=== PATIENT | female | born 1975 | race Hispanic/Latino ===

== ENCOUNTER 2019-11-13 05:18 | Day surgery (SDC) | payer MEDICAID ==
[2019-11-08 16:00] LABS: BASOPHILS % (AUTO) 0.5 % (0.0-5.0); EOSINOPHILS % (AUTO) 1.6 % (0.0-8.0); HEMATOCRIT 41.4 % (36-48); LYMPHOCYTES % (AUTO) 20.7 % (21.0-51.0); MEAN CORPUSCULAR HEMOGLOBIN 31.2 pg (27.0-33.0); MEAN CORPUSCULAR HGB CONC 33.3 g/dL (32.0-36.0); MEAN CORPUSCULAR VOLUME 93.5 fL (79-99); MONOCYTES % (AUTO) 8.8 % (3.0-13.0); NEUTROPHILS % (AUTO) 68.1 % (40.0-77.0); PLATELET COUNT (AUTO) 350 K/uL (130-400); RED BLOOD CELL COUNT(AUTO) 4.43 MIL/uL (4.00-5.50); RED CELL DISTRIBUTION WIDTH 11.7 % (11.0-15.5); WHITE BLOOD COUNT (AUTO) 9.1 K/uL (4.8-10.8)
[2019-11-12 16:16] VITALS: BP 137/75
[~2019-11-13] VITALS: Ht 162.6 cm; Wt 76.1 kg
[2019-11-13] VITALS (16 sets, daily range): BP systolic 107–128; BP diastolic 63–78
[~2019-11-13 05:18] MED LIST: PREN-154 PO
[2019-11-13] MEDS ORDERED: LIDOCAINE PF 2% 5ML ABBOJECT ONE (06:14)
[2019-11-13] MEDS ORDERED: PROPOFOL 10 MG/ML 20ML VIAL IV ONE (06:14)
[2019-11-13] MEDS ORDERED: FENTANYL CITRATE PF 50 MCG/1 ML 2ML VIAL ONE (06:14)
[2019-11-13] MEDS: LACTATED RINGERS 1000ML 1,000 ML IV SCH (06:24)
--- NOTE | 2019-11-13 06:36 | NUR ---
missed Addendum: 11/13/19 at 0637 by MIGUEL ANGEL COTTO RN RN Amended: Links added.
[2019-11-13] MEDS ORDERED: GLYCOPYRROLATE 1 MG/5 ML SYRINGE ONE (06:58)
[2019-11-13] MEDS ORDERED: OXYTOCIN 10 USP UNITS/ML ONE (06:59)
--- NOTE | 2019-11-13 08:10 | NUR ---
Pt arrived to from [facility] with nurse Kemal Erickson, Denies discomfort.
--- NOTE | 2019-11-13 08:55 | NUR ---
Pt remains asymptomatic at this time , dressed and placed in a wheelchair and taken to private vehicle.
== END 2019-11-13 08:55 | disposition home or self-care (01) ==
LOC: DAH 05:18
PROVIDERS: ATTEND Obstetrics & Gynecology
DX: O03.4 Incomplete spontaneous abortion without complication (principal)
CPT/HCPCS: 36415 ×2; 59812; 85025; 86850 ×2; 86900 ×2; 86901 ×2; A4215; A4221; A4222; A4223; A4315; A4649; A4663; A4930; A7002; C9803; J2001; J2590; J2704; J3010; J3490; J7030; U0003

== ENCOUNTER 2020-01-06 02:27 | Emergency (ER) | payer MEDICAID ==
[2020-01-06 02:50] LABS: APPEARANCE,URINE Clear (CLEAR); BILIRUBIN,URINE Negative (NEGATIVE); COLOR,URINE Yellow (YELLOW); GLUCOSE, URINE (UA) Negative (NEGATIVE); KETONES,URINE Trace mg/dL (NEGATIVE); LEUKOCYTE ESTERASE ,URINE Small (NEGATIVE); NITRATE,URINE Negative (NEGATIVE); OCCULT BLOOD,URINE Small (NEGATIVE); PROTEIN,URINE Negative (NEGATIVE); UROBILINOGEN,URINE 0.2 mg/dL (0.2-1.0)
[2020-01-06] MEDS ORDERED: IOHEXOL 350 MG/ML 100ML INFUS..BTL IV ONE (02:55)
[2020-01-06 02:56] LABS: BASOPHILS % (AUTO) 0.7 % (0.0-5.0); EOSINOPHILS % (AUTO) 1.4 % (0.0-8.0); HEMATOCRIT 44.9 % (36-48); LYMPHOCYTES % (AUTO) 36.2 % (21.0-51.0); MEAN CORPUSCULAR HGB CONC 34.1 g/dL (32.0-36.0); MEAN CORPUSCULAR VOLUME 91.1 fL (79-99); MONOCYTES % (AUTO) 7.9 % (3.0-13.0); NEUTROPHILS % (AUTO) 52.9 % (40.0-77.0); PLATELET COUNT (AUTO) 368 K/uL (130-400); RED BLOOD CELL COUNT(AUTO) 4.93 MIL/uL (4.00-5.50); RED CELL DISTRIBUTION WIDTH 11.9 % (11.0-15.5)
[2020-01-06 02:56] LABS: BACTERIA,URINE None Seen /HPF (None Seen)
[2020-01-06 02:57] LABS: AMPHET/METH SCREEN,URINE NEGATIVE (NEGATIVE); BARBITURATE SCREEN, URINE NEGATIVE (NEGATIVE); BENZODIAZEPINES SCREEN,URINE NEGATIVE (NEGATIVE); CANNABINOID SCREEN,URINE NEGATIVE (NEGATIVE); COCAINE SCREEN,URINE NEGATIVE (NEGATIVE); OPIATE SCREEN,URINE NEGATIVE (NEGATIVE); PHENCYCLIDINE SCREEN,URINE NEGATIVE (NEGATIVE); SQUAMOUS EPITHELIAL CELL,UR Few /HPF (0-2)
[2020-01-06 03:07] LABS: CREATININE 0.8 mg/dL (0.5-1.5); POTASSIUM 3.2 mmol/L (3.5-5.1)
[2020-01-06 03:11] LABS: ALBUMIN 4.5 g/dL (3.5-5.0); BILIRUBIN,TOTAL 0.4 mg/dL (0.2-1.0); TOTAL PROTEIN, SERUM 8.7 g/dL (6.0-8.3)
[2020-01-06] MEDS ORDERED: TETANUS/DIPHTHERIA TOXOID [ADULT] 0.5 ML VIAL IM ONE (03:36)
[2020-01-06] MEDS ORDERED: SODIUM CHLORIDE 0.9% 1000ML 1,000 ML IV ONE (03:36)
[2020-01-06 03:46] LABS: INR 0.92 (0.85-1.15); PARTIAL THROMBOPLASTIN TIME 26.4 SEC (26.3-35.5)
[2020-01-06] MEDS ORDERED: ONDANSETRON HCL 4 MG/2 ML VIAL ONE (04:27)
[2020-01-06] MEDS ORDERED: KETOROLAC TROMETHAMINE 30MG/ML ONE (04:27)
[2020-01-06] MEDS ORDERED: HYDROCODONE/ACETAMINOPHEN 5/325 MG TAB ONE (04:27)
== END 2020-01-06 05:48 | disposition home or self-care (01) ==
LOC: EDH 02:27
DX: S42.002A Fracture of unspecified part of left clavicle, initial encounter for closed fracture (principal); W18.39XA Other fall on same level, initial encounter; Y93.89 Activity, other specified; Y92.89 Other specified places as the place of occurrence of the external cause; Y99.8 Other external cause status
CPT/HCPCS: 36415; 70450; 71260; 72125; 74177; 80053; 80305; 81001; 82550; 83690; 84484; 85025; 85610; 85730; 90471; 90714; 93005; 96361; 96374; 96375; 99285; J1885; J2405; J7030; Q9967

== ENCOUNTER → 2020-05-01 | Outpatient (CLI) | payer MEDICAID | END | disposition home or self-care (01) | LOC: RAH 12:41 | PROVIDERS: ATTEND Student in an Organized Health Care Education/Training Program | DX: N83.202 Unspecified ovarian cyst, left side (principal); R10.2 Pelvic and perineal pain | CPT/HCPCS: 72197; A9579 ==

== ENCOUNTER → 2020-05-02 | Outpatient (CLI) | payer MEDICAID ==
[~2020-05-02] MED LIST changes: +GADODIAMIDE 10 MMOL/20 ML VIAL IV ONE; -PREN-154 PO
== END | disposition home or self-care (01) ==
LOC: RAH 12:45
PROVIDERS: ATTEND Student in an Organized Health Care Education/Training Program
DX: D43.4 Neoplasm of uncertain behavior of spinal cord (principal); R10.2 Pelvic and perineal pain; Z43.4 Encounter for attention to other artificial openings of digestive tract
CPT/HCPCS: 72157; 72158; A9579 ×2

== ENCOUNTER 2023-01-09 01:48 | Emergency (ER) | payer MEDICAID ==
[~2023-01-09] VITALS: Ht 160 cm; Wt 75.3 kg
[2023-01-09] MEDS ORDERED: IOHEXOL 350 MG/ML 100ML INFUS..BTL IV ONE (02:15)
[2023-01-09] MEDS ORDERED: IOHEXOL-350 50ML VIAL IV ONE (02:15)
[2023-01-09 02:37] LABS: BASOPHILS # (AUTO) 0.07 K/uL (0.00-0.20); BASOPHILS % (AUTO) 0.9 % (0.0-5.0); EOSINOPHILS % (AUTO) 1.3 % (0.0-8.0); HEMATOCRIT 41.7 % (36-48); LYMPHOCYTES # (AUTO) 2.2 K/uL (1.0-4.8); LYMPHOCYTES % (AUTO) 28.1 % (21.0-51.0); MEAN CORPUSCULAR HEMOGLOBIN 32.6 pg (27.0-33.0); MEAN CORPUSCULAR HGB CONC 34.3 g/dL (32.0-36.0); MONOCYTES # (AUTO) 0.7 K/uL (0.1-1.0); MONOCYTES % (AUTO) 8.5 % (3.0-13.0); NEUTROPHILS # (AUTO) 4.8 K/uL (1.8-7.7); NEUTROPHILS % (AUTO) 59.9 % (40.0-77.0); PLATELET COUNT (AUTO) 391 K/uL (130-400); RED BLOOD CELL COUNT(AUTO) 4.39 MIL/uL (4.00-5.50); RED CELL DISTRIBUTION WIDTH 12.1 % (11.0-15.5)
[2023-01-09 02:41] LABS: CREATININE 0.6 mg/dL (0.5-1.5); POTASSIUM 3.5 mmol/L (3.5-5.1)
[2023-01-09 02:43] LABS: INR < 0.93 (0.85-1.15); PROTHROMBIN TIME 10.2 SEC (9.6-11.6)
[2023-01-09 02:45] LABS: PARTIAL THROMBOPLASTIN TIME 24.8 SEC (26.3-35.5)
[2023-01-09 02:46] LABS: ALBUMIN 3.8 g/dL (3.5-5.0); BILIRUBIN,TOTAL 0.3 mg/dL (0.2-1.0); TOTAL PROTEIN, SERUM 7.8 g/dL (6.0-8.3)
[2023-01-09] MEDS ORDERED: CEPH500B PO (04:19)
[2023-01-09] MEDS ORDERED: IBUP-1493 PO (04:19)
[2023-01-09] MEDS ORDERED: TETANUS/DIPHTHERIA TOXOID [ADULT] 0.5 ML VIAL IM ONE (04:30)
[2023-01-09 05:00] VITALS: BP 122/54; PULSE 74; RESP 18; O2SAT 98
== END 2023-01-09 05:06 | disposition home or self-care (01) ==
LOC: EDH 01:48
DX: S96.912A Strain of unspecified muscle and tendon at ankle and foot level, left foot, initial encounter (principal); S90.512A Abrasion, left ankle, initial encounter; M79.672 Pain in left foot; V86.95XA Unspecified occupant of 3- or 4- wheeled all-terrain vehicle (ATV) injured in nontraffic accident, initial encounter; Y93.89 Activity, other specified; Y92.89 Other specified places as the place of occurrence of the external cause; Y99.8 Other external cause status
CPT/HCPCS: 99285; 71270; 71045; 80053; 84703; 85025; 85610; 85730; 86850; 86900; 86901; 36415; 90714; 73610 ×2; 73630 ×2; 73090; 72170; 73590 ×2; 70470; 72127; 74178; 90471; Q9967 ×2